=== PATIENT | female | born 1950 ===

== ENCOUNTER 2022-09-20 09:11 | Emergency (ER) | payer MEDICARE, SELFPAY ==
--- NOTE | ~2022-09-20 | XR_ITS ---
EXAMINATION: XR CHEST CLINICAL INFORMATION: Cough. COMPARISON: None available. TECHNIQUE: Frontal view of the chest was obtained. FINDINGS: The lungs are well-expanded with platelike atelectasis in the lingula. Rest of the lungs are clear. The heart size and pulmonary vascularity is normal. There is mild spondylosis dorsal spine. No aggressive lytic or sclerotic process seen. XR/XR chest 1V IMPRESSION: Lingular atelectasis. Rest of the lungs are clear.
[2022-09-20 09:14] VITALS: BP 146/76; PULSE 118; RESP 20; TEMP 37.1; O2SAT 95; BMI 36.3
--- NOTE | 2022-09-20 09:58 | ED.GENADULT ---
HPI - General Adult General Chief complaint: Nausea/Vomiting/Diarrhea Stated complaint: flu symptons Time Seen by Provider: 09/20/22 09:58 Source: patient Mode of arrival: ambulatory Limitations: no limitations History of Present Illness HPI narrative: Patient history of hypertension bronchitis comes here for increased cough vomiting diarrhea for last 5 days no fever at sore throat earlier anymore no abdominal pain no significant shortness of breath cough is getting worse with mucopurulent expectoration no other family member sick Related Data Home Medications Medication Instructions Recorded Confirmed albuterol sulfate 90 mcg/actuation 2 puff PO Q6H PRN 03/16/21 aerosol inhaler citalopram 10 mg tablet 10 mg PO DAILY 03/16/21 citalopram 20 mg tablet 20 mg PO DAILY 03/16/21 levothyroxine 125 mcg tablet 125 mcg PO DAILY 03/16/21 losartan 100 mg tablet 100 mg PO DAILY 03/16/21 simvastatin 40 mg tablet 40 mg PO BEDTIME 03/16/21 Previous Rx's Medication Instructions Recorded erythromycin 5 mg/gram (0.5 %) eye 0.5 inch ophthalmic (eye) BID #3.5 03/16/21 ointment grams cefuroxime axetil 500 mg tablet 500 mg PO BID #20 tabs 09/20/22 codeine 10 mg-guaifenesin 100 mg/5 10 ml PO Q6H PRN cough #237 mL 09/20/22 mL oral liquid doxycycline hyclate 100 mg tablet 100 mg PO BID #20 tabs 09/20/22 Allergies Allergy/AdvReac Type Severity Reaction Status Date / Time penicillamine Allergy Severe Anaphylaxis Verified 03/16/21 13:55 levofloxacin [From Levaquin] Allergy Nausea and Verified 09/20/22 11:55 Vomiting metronidazole [From Flagyl] Allergy Joint Pain Verified 09/20/22 11:55 Sulfa (Sulfonamide Allergy Hives Verified 09/20/22 11:55 Antibiotics) Review of Systems Review of Systems: Yes all other systems are reviewed and are negative [facility] Social History Social History Advance Directives: No Advance Directives Information Provided: Yes Physical Exam ED Vital Signs: Vital Signs - 24 hr 09/20/22 09:14 09/20/22 10:16 Temperature 98.8 F 99.2 F Pulse Rate 118 H 96 Respiratory Rate 20 20 Blood Pressure 146/76 H 129/59 L Pulse Oximetry 95 94 Oxygen Delivery Method Room Air Room Air BMI result Body Mass Index 36.3 Appearance: Alert. Oriented X3. No acute distress. ENT: Pharynx normal. Oral Mucosa moist sinuses nontender no nasal discharge Neck: Normal inspection. Neck supple. CVS: Normal heart rate and rhythm. Pulses normal. Respiratory: No respiratory distress. Equal air entry bilateral, no wheezing/rales/rhonchi Abdomen: Soft and nontender. Bowel sounds are present, Skin: Skin warm and dry. Normal skin color. Normal skin turgor. Extremities: No lower extremity edema. No calf tenderness Neuro: Oriented X 3. No motor deficit. Medications Administered Discontinued Medications Generic Name Dose Route Start Last Admin Trade Name Freq PRN Reason Stop Dose Admin Cefuroxime Axetil 500 mg 09/20/22 11:41 09/20/22 11:56 Cefuroxime Axetil 500 Mg Tablet PO 09/20/22 11:42 500 mg ONCE ONE Administration Doxycycline Monohydrate 100 mg 09/20/22 11:41 09/20/22 11:56 Doxycycline Monohydrate 100 Mg Capsule PO 09/20/22 11:42 100 mg ONCE ONE Administration Guaifenesin/Codeine Phosphate 10 ml 09/20/22 10:05 09/20/22 10:13 Guaifen/Codeine Sf 200/20/10ml 10 Ml Liquid PO 09/20/22 10:06 10 ml ONCE ONE Administration Medical Decision Making Medical Decision Making [facility] Narrative: Patient chest x-ray negative COVID influenza negative likely bronchitis discharge patient home on doxycycline and Ceftin cough syrup Lab Data [facility] Lab Attestation statement: I reviewed the patient's lab results. Labs: Lab Results 09/20/22 09/20/22 Range/Units 10:14 10:14 COVID-19 (MOE) Negative (Negative) COVID-19 Clin Com See Note Influenza Type A (OSIEL) Negative (Negative) Influenza Type B (OSIEL) Negative (Negative) Influenza A & B Note See Note Discharge Plan Discharge Clinical Impression: Acute bronchitis Patient Disposition: Home, Self-Care Instructions: Acute Bronchitis (ED) Additional Instructions: Take antibiotic as prescribed Continue to use your inhaler 2 puffs every 4-6 hours as needed Cough drops as advised Follow with PCP if not better Prescriptions: New codeine-guaifenesin 10-100 mg/5 mL liquid 10 ml PO Q6H PRN (Reason: cough) Qty: 237 0RF cefuroxime axetil 500 mg tablet 500 mg PO BID Qty: 20 0RF doxycycline hyclate 100 mg tablet 100 mg PO BID Qty: 20 0RF No Action erythromycin 5 mg/gram (0.5 %) ointment 0.5 inch ophthalmic (eye) BID Qty: 3.5 0RF Rx Instructions: Apply to underside of lower eyelid to the affected eye Interventions: ED Discharge Assessment Last Done: 09/20/22 11:58 Discharge Date/Time: 09/20/22 11:58
[2022-09-20] MEDS: guaiFEN/Codeine SF 200/20/10ML 10 ML LIQUID PO (10:13)
[2022-09-20 10:16] VITALS: BP 129/59; PULSE 96; RESP 20; TEMP 37.3; O2SAT 94
[2022-09-20 10:48] LABS: COVID-19 Test Negative (Negative); IDNOW Serial# 9DB6401D
[2022-09-20 11:26] LABS: IDNOW Serial# 08D9AD1C; Influenza A Negative (Negative); Influenza B2 Negative (Negative)
[2022-09-20] MEDS: Doxycycline Monohydrate 100 MG CAPSULE PO (11:56)
== END 2022-09-20 11:58 | disposition home or self-care (01) ==
PROVIDERS: Emergency Provider Internal Medicine; PCP Internal Medicine
DX: J20.9 Acute bronchitis, unspecified (principal); Z20.822 Contact with and (suspected) exposure to COVID-19; I10 Essential (primary) hypertension; Z79.899 Other long term (current) drug therapy
CPT/HCPCS: 71045; 87502; 87635; 99283; 99284